=== PATIENT | male | born 1965 | race Caucasian/White ===

== ENCOUNTER 2021-12-25 23:51 | Emergency (ER) | payer OTHER, MEDICAID, SELFPAY ==
[2021-12-26 00:02] VITALS: BP 139/69; PULSE 94; RESP 20; TEMP 36.6; O2SAT 99
[2021-12-26 00:30] VITALS: BP 140/67; PULSE 85; RESP 18; O2SAT 98
--- NOTE | 2021-12-26 00:54 | ED_ITS ---
HPI - Back Pain/Injury General Chief Complaint: Back Pain/Injury Stated Complaint: Back Pain Time Seen by Provider: 12/26/21 00:08 Source: patient and EMS Mode of arrival: EMS History of Present Illness HPI Narrative: Patient is a 56-year-old male who is here for evaluation of back pain. He has a long standing history of lower back discomfort. Has seen a surgeon in the past and there was some discussion about doing surgery for his back pain but because of other issues he has not had this performed up to this point. He does not have a primary doctor. He states that oxycodone is worked for him in the past. He states that he recently got off of a bus here in the local area. He thinks it was the extensive walking that he did yesterday and the bus ride that causes pain to hurt. He states that his legs are weak. After he got off the bus he was able to walk for a short period of time but then stated that he had to crawl. He states someone saw him crawling. They came over to see how he was doing and offered him a beer. He states that he did drink a beer with this individual. He was outside of a marijuana dispensary where he was going to get CBD oil for his ?body pain. EMS was called because of his back pain. Related Data Allergies Allergy/AdvReac Type Severity Reaction Status Date / Time aspirin [ASPIRIN] Allergy Severe swelling Verified 12/26/21 01:06 bupropion [BUPROPION] Allergy Severe seizures Verified 12/26/21 01:06 haloperidol [From HALDOL] Allergy Severe bad Verified 12/26/21 01:06 reaction NSAIDS (Non-Steroidal Allergy Severe kidney Verified 12/26/21 01:06 Anti-Inflamma [NSAIDS (NON-STEROIDAL ANTI-INFLAMMA] Penicillins [PENICILLINS] Allergy Severe swelling Verified 12/26/21 01:06 acetaminophen [ACETAMINOPHEN] Allergy Mild stomach Verified 12/26/21 01:06 issues hydrocodone [From VICODIN] Allergy Mild sick Verified 12/26/21 01:06 ibuprofen [IBUPROFEN] Allergy Mild kidney Verified 12/26/21 01:06 tramadol [TRAMADOL] Allergy Mild itchy Verified 12/26/21 01:06 Review of Systems Review of Systems ROS Unobtainable: All systems reviewed & are unremarkable except as noted in HPI and below Patient History Medical History Bipolar disorder in partial remission (01/31/16) Chronic pain syndrome (01/31/16) Encounter for medication management (01/31/16) History of alcohol abuse (01/31/16) History of psychological stress (01/31/16) Osteoarthritis of multiple joints (01/31/16) Recurrent subluxation of right shoulder (01/31/16) Status post right shoulder hemiarthroplasty (01/31/16) Subluxation of right shoulder joint, sequela (01/31/16) Social History lives independently: Yes Substance Use Type: marijuana Exam Initial Vital Signs Initial Vital Signs: Vital Signs Temperature 98 F 12/26/21 00:02 Pulse Rate 94 H 12/26/21 00:02 Respiratory Rate 20 12/26/21 00:02 Blood Pressure 139/69 12/26/21 00:02 Pulse Oximetry 99 12/26/21 00:02 Const General: cooperative HENMT Head: normal to inspection and normocephalic Resp Effort & Inspection: normal respiratory effort Auscultation: clear to auscultation bilaterally GI Inspection: normal to inspection Skin General: no rashes or lesions noted Neuro General: patient alert, patient awake and moves all extremities Extrem General: normal to inspection and No edema Course Orders Ordered: Discontinued Medications Hydromorphone HCl (Hydromorphone 1 Mg Inj) 1 mg IM NOW ONE Stop: 12/26/21 00:55 Last Admin: 12/26/21 01:29 Dose: 1 mg Documented by: AKASH Vital Signs Vital signs: Vital Signs - 8 hr 12/26/21 00:02 12/26/21 00:30 12/26/21 02:13 Temperature 98 F Pulse Rate 94 H 85 78 Respiratory Rate 20 18 18 Blood Pressure 139/69 140/67 140/79 Pulse Oximetry 99 98 97 MDM - Back Pain/Injury MDM Narrative Medical decision making narrative: Patient is chronic back pain. I have low suspicion for cauda equina. Low suspicion for fracture. No indication for radiologic studies. Informed patient that chronic pain medication will need to come from 1 provider. He states he does not have a primary doctor in the area because he is trying to move to or again. Informed him that maybe this is not the best time for him to move and switch providers if he is needing chronic medication. I stated that we often put individuals on steroids to help with the inflammation. I agree that him walking yesterday in the bus ride probably aggravated his symptoms. He declined the steroids. He has multiple stated allergies that prevents him from using things like anti-inflammatories. He was given 1 dose of IM pain medication here in the ER. Will discharge home. He was given information where he could establish a primary doctor here in the local area. Discharge Plan Departure Patient Disposition: Home Clinical Impression: Chronic back pain, Subluxation of right shoulder joint, sequela Instructions: DI for Low Back Pain Activity Restrictions/Additional Instructions: I do recommend that you contact the spine surgeon that you have talked within the past to discuss proceeding with surgery for your back pain. Any pain medication needs to come from your primary provider. You can contact the call center here at [facility] at [phone] to help you establish a primary doctor if needed. Return emergency department for any new symptoms. Referrals: Arlette Man MD [Primary Care Provider] -
[2021-12-26] MEDS: HYDROMORPHONE 1 MG INJ IM (01:29)
[2021-12-26 02:13] VITALS: BP 140/79; PULSE 78; RESP 18; O2SAT 97
== END 2021-12-26 02:16 | disposition home or self-care (01) ==
PROVIDERS: Emergency Provider Emergency Medicine; PCP Internal Medicine
DX: M54.50 Low back pain, unspecified (principal); G89.29 Other chronic pain; S43.001S Unspecified subluxation of right shoulder joint, sequela; Z79.891 Long term (current) use of opiate analgesic; X58.XXXS Exposure to other specified factors, sequela
CPT/HCPCS: 96372; 99283; J1170

== ENCOUNTER 2022-01-17 09:33 | Emergency (ER) | payer OTHER, MEDICAID, SELFPAY ==
[2022-01-17] VITALS (9 sets, daily range): BP systolic 114–140; BP diastolic 63–74; PULSE 76–86; RESP 16–30; TEMP 36.5; O2SAT 94–98; BMI 31.3
--- NOTE | 2022-01-17 10:55 | PC.NURSE ---
Has multiple issues with pain, dizziness, fractured hand, throwing up blood x 2 days
--- NOTE | 2022-01-17 12:39 | ED.GIBLEED ---
HPI - GI Bleed <Florentin Shi, DO - Last Filed: 01/18/22 10:44> General Chief complaint: GI Bleed Stated complaint: back/leg pain, throwing up blood Time Seen by Provider: 01/17/22 12:31 Source: patient Mode of arrival: Ambulatory History of Present Illness HPI Narrative: 56-year-old male former smoker with prior significant alcohol history presents with multiple symptoms over the past few days. He states that he does frequently fall but over the past 3 days is fallen multiple times and states that his left side seems to be giving out on him. He has fallen at least a few times from ground level and wants down 6 stairs. He has some mid to right-sided neck pain and left-sided abdominal pain. He has a history of back issues and states he has even had MRI at outside facility. He denies any loss of control of bowel or bladder. He denies any pain down his left leg. He has a very poor historian at baseline. He denies any obvious head injury. He has had no blurred or double vision. He denies any trouble with speech or his thought process. He denies any obvious new extremity weakness but does state that he feels that his left side has been giving out on him which would be contributing to his recent falls. He states that he has had significant nausea and vomiting and has developed some blood tinged emesis. He states he thinks he has had bloody emesis in the past but is unsure. He states he recently had a fall and had been seen and evaluated at [facility], he was found to have a 5th finger fracture and was splinted, he fell again in the aftermath while incarcerated and the cast was removed. Related Data Allergies Allergy/AdvReac Type Severity Reaction Status Date / Time aspirin [ASPIRIN] Allergy Severe swelling Verified 12/26/21 01:06 bupropion [BUPROPION] Allergy Severe seizures Verified 12/26/21 01:06 haloperidol [From HALDOL] Allergy Severe bad Verified 12/26/21 01:06 reaction NSAIDS (Non-Steroidal Allergy Severe kidney Verified 12/26/21 01:06 Anti-Inflamma [NSAIDS (NON-STEROIDAL ANTI-INFLAMMA] Penicillins [PENICILLINS] Allergy Severe swelling Verified 12/26/21 01:06 acetaminophen [ACETAMINOPHEN] Allergy Mild stomach Verified 12/26/21 01:06 issues hydrocodone [From VICODIN] Allergy Mild sick Verified 12/26/21 01:06 ibuprofen [IBUPROFEN] Allergy Mild kidney Verified 12/26/21 01:06 tramadol [TRAMADOL] Allergy Mild itchy Verified 12/26/21 01:06 fentanyl Allergy Verified 01/17/22 10:48 Review of Systems <Florentin Shi DO - Last Filed: 01/18/22 10:44> Review of Systems Narrative: GENERAL: See HPI HEENT: Denies sinus pain, ear pain, sore throat, difficulty swallowing, dizziness. RESPIRATORY: Denies dyspnea, cough, wheezing, hemoptysis, sputum. CARDIOVASCULAR: Denies chest pain, palpitations, orthopnea, edema, GASTROINTESTINAL: See HPI : Denies dysuria, frequency, incontinence, hematuria, urinary retention. MUSCULOSKELETAL: See HPI SKIN: Denies rash, skin lesions, or other NEUROLOGIC: See HPI PSYCHIATRIC: No concerning psychosocial issues. 12 point review of systems is negative except for those stated above Patient History <Florentin Shi DO - Last Filed: 01/18/22 10:44> Medical History Bipolar disorder in partial remission (01/31/16) Chronic pain syndrome (01/31/16) Encounter for medication management (01/31/16) History of alcohol abuse (01/31/16) History of psychological stress (01/31/16) Osteoarthritis of multiple joints (01/31/16) Recurrent subluxation of right shoulder (01/31/16) Status post right shoulder hemiarthroplasty (01/31/16) Subluxation of right shoulder joint, sequela (01/31/16) Social History lives independently: Yes Smoking Status: Former smoker Smoking Status: Former smoker Substance Use Type: marijuana Exam <Florentin Shi DO - Last Filed: 01/18/22 10:44> Narrative Exam Narrative: GENERAL: [56] year old patient appears stated age. Well-developed patient, in mild distress. GCS 15 HEAD: Atraumatic. Normocephalic. EYES: Pupils equal round and reactive. Extraocular motions intact. No scleral icterus. No injection or drainage. ENT: Nose without bleeding, purulent drainage. Throat without erythema, tonsillar hypertrophy or exudate. Airway patent. NECK: Trachea midline. Tender in the right upper lateral side of neck, no midline tenderness, step-offs or crepitance CARDIOVASCULAR: Regular rate and rhythm without murmurs, gallops, or rubs. RESPIRATORY: Clear to auscultation. Breath sounds equal bilaterally. No wheezes, rales, or rhonchi. GASTROINTESTINAL: Abdomen soft, non-tender, nondistended. EXTREMITIES: No edema or joint tenderness. BACK: Nontender without deformity or crepitance. No flank tenderness. No saddle anesthesia. Left lower extremity with 3/5 muscle strength, right lower extremity 4/5 muscle strength. Left patellar reflex 1+, right patellar reflex 2+ NEURO: AOx3. SKIN: No rash or erythema of visible areas Initial Vital Signs Initial Vital Signs: Vital Signs Temperature 97.7 F 01/17/22 10:48 Pulse Rate 86 01/17/22 10:48 Respiratory Rate 18 01/17/22 10:48 Blood Pressure 132/74 01/17/22 10:48 Pulse Oximetry 97 01/17/22 10:48 <Justin Lemus DO - Last Filed: 01/18/22 01:25> Initial Vital Signs Initial Vital Signs: Vital Signs Temperature 97.7 F 01/17/22 10:48 Pulse Rate 86 01/17/22 10:48 Respiratory Rate 18 01/17/22 10:48 Blood Pressure 132/74 01/17/22 10:48 Pulse Oximetry 97 01/17/22 10:48 Course <Florentin Shi DO - Last Filed: 01/18/22 10:44> Orders Ordered: Discontinued Medications Oxycodone HCl (Oxycodone 5 Mg/5 Ml Oral Solution) 10 mg PO Q4HR PRN PRN Reason: Pain, Moderate (4-6) Oxycodone HCl (Oxycodone Ir 5 Mg Tablet) 10 mg PO NOW ONE Stop: 01/17/22 15:09 Last Admin: 01/17/22 15:15 Dose: 10 mg Documented by: PRIETO Oxycodone HCl (Oxycodone Ir 5 Mg Tablet) 5 mg PO NOW ONE Stop: 01/17/22 20:58 Last Admin: 01/17/22 21:01 Dose: 5 mg Documented by: DBROYLE Oxycodone/Acetaminophen (Oxycodone/Acetaminophen 5/325 Tablet) 2 tab PO NOW ONE Stop: 01/17/22 15:01 Last Admin: 01/17/22 15:10 Dose: Not Given Documented by: PRIETO Vital Signs Vital signs: Vital Signs - 8 hr 01/17/22 19:30 01/17/22 21:10 Pulse Rate 83 Respiratory Rate 16 18 Blood Pressure 124/74 134/68 Pulse Oximetry 97 95 <Justin Lemus DO - Last Filed: 01/18/22 01:25> Orders Ordered: Discontinued Medications Oxycodone HCl (Oxycodone 5 Mg/5 Ml Oral Solution) 10 mg PO Q4HR PRN PRN Reason: Pain, Moderate (4-6) Oxycodone HCl (Oxycodone Ir 5 Mg Tablet) 10 mg PO NOW ONE Stop: 01/17/22 15:09 Last Admin: 01/17/22 15:15 Dose: 10 mg Documented by: PRIETO Oxycodone HCl (Oxycodone Ir 5 Mg Tablet) 5 mg PO NOW ONE Stop: 01/17/22 20:58 Last Admin: 01/17/22 21:01 Dose: 5 mg Documented by: ANABELL Oxycodone/Acetaminophen (Oxycodone/Acetaminophen 5/325 Tablet) 2 tab PO NOW ONE Stop: 01/17/22 15:01 Last Admin: 01/17/22 15:10 Dose: Not Given Documented by: PRIETO Vital Signs Vital signs: Vital Signs - 8 hr 01/17/22 19:30 01/17/22 21:10 Pulse Rate 83 Respiratory Rate 16 18 Blood Pressure 124/74 134/68 Pulse Oximetry 97 95 MDM - GI Bleed <Florentin Shi DO - Last Filed: 01/18/22 10:44> Lab Data Result diagrams: 01/17/22 13:05 01/17/22 13:05 Labs: Lab Results 01/17/22 01/17/22 01/17/22 Range/Units 13:05 13:05 13:05 WBC 5.6 (4.5-11.0) X10^3/uL RBC 4.31 L (4.5-5.9) X10^6/uL Hgb 11.4 L (13.5-17.5) g/dL Hct 34.6 L (41-53) % MCV 80.3 (80-100) fL MCH 26.4 (26-34) PG MCHC 32.9 (30-36) % RDW 17.7 H (11.6-14.8) % Plt Count 195 (150-400) X10^3/uL Neut % (Auto) 59.4 (50-75) % Lymph % (Auto) 21.2 L (25-40) % Stark % (Auto) 11.7 (3-14) % Eos % (Auto) 7.5 H (2-4) % Baso % (Auto) 0.2 (0-2) % Neut # (Auto) 3300 (5848-7879) /uL Lymph # (Auto) 1200 (5962-7675) /uL Stark # (Auto) 700 (0-900) /uL Eos # (Auto) 400 (0-450) /uL Baso # (Auto) 0 (0-100) /uL PT 12.6 (10.1-12.7) SECONDS INR 1.1 (0.9-1.3) Sodium 138 (137-145) mmol/L Potassium 4.1 (3.4-5.1) mmol/L Chloride 99 (98-107) mmol/L Carbon Dioxide 27 (22-32) mmol/L BUN 10 (9-20) mg/dL Creatinine 0.77 (0.66-1.25) mg/dL Estimated GFR > 60 (>60) mL/min BUN/Creatinine Ratio 13.0 (6-22) Glucose 110 H (70-100) mg/dL Calcium 8.7 (8.4-10.2) mg/dL Magnesium 2.1 (1.6-2.3) mg/dL Total Bilirubin 0.8 (0.2-1.3) mg/dL AST 66 H (17-59) IU/L ALT 68 H (<50) IU/L Alkaline Phosphatase 99 (38-126) U/L Total Creatine Kinase 294 H (55-170) U/L CK-MB (CK-2) 7.77 H (<2.37) ng/mL CK-MB (CK-2) Rel Index 2.6 (1.5-5.0) % Troponin I < 0.012 (0.01-0.034) ng/mL NT-Pro-B Natriuret Pep 28 (<125) pg/mL Total Protein 8.2 (6.3-8.2) g/dL Albumin 4.4 (3.5-5.0) g/dL Globulin 3.8 (1.7-4.1) g/dL Albumin/Globulin Ratio 1.2 (1.0-2.8) Lipase 470 H (23-300) U/L Urine Dip Bedside Urine Glucose Negative Bedside Urine Bilirubin - Negative Bedside Urine Ketone - Negative Urine Specific [place] 1.030 Bedside Urine Occult Blood - Negative Bedside Urine pH 6.0 Bedside Urine Protein - Negative Bedside Urine Urobilinogen - Negative Bedside Urine Nitrite - Negative Bedside Urine Leukocytes - Negative Esterase Imaging Data CT scan - head: Radiologist's Impression: NAP CT - cervical spine: Radiologist's Impression: [address] [address] [address] Scan Report Signed Patient: Anthony Sloan MR#: [id number] : 1965 Acct:[id number] Age/Sex: 56 / M Date of Service: 01/17/22 Loc: ED Accession Number: [id number] ?? Procedure: CT cervical spine wo con Ordering Provider: Florentin Shi D.O. PROCEDURE:? CT CERVICAL SPINE WO CON ? INDICATIONS:? multiple falls, neck pain ? TECHNIQUE:? Noncontrast 3 mm thick sections acquired from the skull base to the T4 level.? Sagittal and coronal reformats were then constructed.? For radiation dose reduction, the following was used:? automated exposure control, adjustment of mA and/or kV according to patient size.? ? COMPARISON:? None. ? FINDINGS:? Image quality:? Excellent.? ? Bones:? No fractures or dislocations.? Visualized superior ribs are intact.? ? Soft tissues:? Prevertebral soft tissues are normal in thickness.? No paravertebral hematomas.? No apical pneumothoraces.? ? ? IMPRESSION:? No CT evidence of acute traumatic cervical spine injury. ? Dictated by: Landon Rodriguez M.D. on 01/17/2022 at 14:25 ? ? Approved by: Landon Rodriguez M.D. on 01/17/2022 at 14:35 ? CT scan - chest: Radiologist's Impression: [address] [address] [address] Scan Report Addendum Patient: Anthony Sloan MR#: [id number] : 1965 Acct:[id number] Age/Sex: 56 / M Date of Service: 01/17/22 Loc: ED Accession Number: [id number] ?? Procedure: CT chest abd pel w con Ordering Provider: Florentin Shi D.O. ADDENDUMThis report includes an Addendum and supersedes previous reports for this exam. ? ? ? PROCEDURE:? CT CHEST ABD PEL W CON ? INDICATIONS:? traumatic injury, fall with left abdominal pain ? TECHNIQUE:? After the administration of intravenous contrast, 5 mm thick sections acquired from the lung apices to the symphysis.? 2.5 mm thick coronal and sagittal reformats were acquired. ?Additional 7 mm thick coronal maximum intensity projection (MIP) reformats acquired through the lungs.? Optional 10-minute delayed imaging may be performed from the kidneys to the bladder.? For radiation dose reduction, the following was used:? automated exposure control, adjustment of mA and/or kV according to patient size.? ? COMPARISON:? None. ? FINDINGS:? Image quality:? Excellent.? ? CHEST:? Lungs:? No pulmonary contusions or lacerations.? No acute airspace opacities.? No pneumothorax or hemothorax.? Central and peripheral airways appear patent and normal in caliber.? ? Mediastinum:? No mediastinal hematomas.? Heart size is normal.? No pericardial effusion.? Thoracic aorta and pulmonary arteries demonstrate normal size and enhancement.? No mediastinal or hilar adenopathy.? Esophagus is normal in caliber.? Mild hiatal hernia.? ? Chest wall:? No rib fractures.? No subcutaneous emphysema.? No axillary or supraclavicular adenopathy.? Thyroid gland is unremarkable.? ? ? ABDOMEN:? Solid organs:? Liver is enlarged with steatosis and normal enhancement, without lacerations.? Gallbladder is unremarkable.? Biliary system is non-dilated.? Pancreas enhances normally, without transection.? Spleen is normal in size and enhancement, without lacerations.? No adrenal hematomas.? Both kidneys enhance normally, without hydronephrosis or lacerations.? Nonobstructing punctate right renal calculus. ? Peritoneum and bowel:? No free fluid or air.? Unenhanced bowel loops demonstrate normal wall thickness and caliber.? ? Nodes and vessels:? No retroperitoneal or mesenteric adenopathy.? Aorta and inferior vena cava are normal in size and enhancement.? ? Miscellaneous:? No ventral hernias.? ? ? PELVIS:? Genitourinary:? Bladder wall thickness is normal.? ? Miscellaneous:? Fat containing inguinal hernias are present. ? Bones:? Pelvic ring and hip joints appear intact.? No vertebral compression fractures.? Mild deformity of the right iliac wing suggestive of old trauma or iatrogenic intervention. ? ? IMPRESSION:? ? No acute traumatic osseous or visceral injury. ? Hepatic steatosis. ? Dictated by: Светлана Galindo M.D. on 01/17/2022 at 13:37 ? ? Approved by: Светлана Galindo M.D. on 01/17/2022 at 13:42 ? ? ? ADDENDUM: ? ? Report corrected and underlined above.? ? Contents of this addendum discussed between Dr. Galindo and Dr. Shi.? ? Dictated by: Leoncio Orozco M.D. on 01/17/2022 at 15:24 ? ? Approved by: Leoncio Orozco M.D. on 01/17/2022 at 15:25 ? Addendum Dictated By: Leoncio Orozco MD Addendum Signed By: Addendum Cosigned By: DD/ /05/1629 TD/TT: 01/17/2203/05/1629 PROCEDURE:? CT CHEST ABD PEL W CON ? INDICATIONS:? traumatic injury, fall with left abdominal pain ? TECHNIQUE:? After the administration of intravenous contrast, 5 mm thick sections acquired from the lung apices to the symphysis.? 2.5 mm thick coronal and sagittal reformats were acquired. ?Additional 7 mm thick coronal maximum intensity projection (MIP) reformats acquired through the lungs.? Optional 10-minute delayed imaging may be performed from the kidneys to the bladder.? For radiation dose reduction, the following was used:? automated exposure control, adjustment of mA and/or kV according to patient size.? ? COMPARISON:? None. ? FINDINGS:? Image quality:? Excellent.? ? CHEST:? Lungs:? No pulmonary contusions or lacerations.? No acute airspace opacities.? No pneumothorax or hemothorax.? Central and peripheral airways appear patent and normal in caliber.? ? Mediastinum:? No mediastinal hematomas.? Heart size is normal.? No pericardial effusion.? Thoracic aorta and pulmonary arteries demonstrate normal size and enhancement.? No mediastinal or hilar adenopathy.? Esophagus is normal in caliber.? Mild hiatal hernia.? ? Chest wall:? No rib fractures.? No subcutaneous emphysema.? No axillary or supraclavicular adenopathy.? Thyroid gland is unremarkable.? ? ? ABDOMEN:? Solid organs:? Liver is enlarged with steatosis and normal enhancement, without lacerations.? Gallbladder is unremarkable.? Biliary system is non-dilated.? Pancreas enhances normally, without transection.? Spleen is normal in size and enhancement, without lacerations.? No adrenal hematomas.? Both kidneys enhance normally, without hydronephrosis or lacerations.? Nonobstructing punctate right renal calculus. ? Peritoneum and bowel:? No free fluid or air.? Unenhanced bowel loops demonstrate normal wall thickness and caliber.? ? Nodes and vessels:? No retroperitoneal or mesenteric adenopathy.? Aorta and inferior vena cava are normal in size and enhancement.? ? Miscellaneous:? No ventral hernias.? ? ? PELVIS:? Genitourinary:? Bladder wall thickness is normal.? ? Miscellaneous:? Fat containing inguinal hernias are present. ? Bones:? Pelvic ring and hip joints appear intact.? No vertebral compression fractures.? Mild deformity of the right iliac wing suggestive of old trauma or iatrogenic intervention. ? ? IMPRESSION:? ? Lysed acute traumatic osseous or visceral injury. ? Hepatic steatosis. ? Dictated by: Светлана Galindo M.D. on 01/17/2022 at 13:37 ? ? Approved by: Светлана Galindo M.D. on 01/17/2022 at 13:42 ? MDM Narrative Medical decision making narrative: Patient with widespread symptoms and all over pain in the aftermath of multiple recent falls. Physical exam largely reassuring with labs that are unremarkable. Head, C-spine, chest abdomen and pelvis are unremarkable. Patient reports left leg weakness for some time but perhaps worse than normal. MRI pending. Patient signed out to Dr. Lemus for final disposition <Justin Lemus, DO - Last Filed: 01/18/22 01:25> Lab Data Labs: Lab Results 01/17/22 01/17/22 01/17/22 Range/Units 13:05 13:05 13:05 WBC 5.6 (4.5-11.0) X10^3/uL RBC 4.31 L (4.5-5.9) X10^6/uL Hgb 11.4 L (13.5-17.5) g/dL Hct 34.6 L (41-53) % MCV 80.3 (80-100) fL MCH 26.4 (26-34) PG MCHC 32.9 (30-36) % RDW 17.7 H (11.6-14.8) % Plt Count 195 (150-400) X10^3/uL Neut % (Auto) 59.4 (50-75) % Lymph % (Auto) 21.2 L (25-40) % Stark % (Auto) 11.7 (3-14) % Eos % (Auto) 7.5 H (2-4) % Baso % (Auto) 0.2 (0-2) % Neut # (Auto) 3300 (0715-9119) /uL Lymph # (Auto) 1200 (0272-6416) /uL Stark # (Auto) 700 (0-900) /uL Eos # (Auto) 400 (0-450) /uL Baso # (Auto) 0 (0-100) /uL PT 12.6 (10.1-12.7) SECONDS INR 1.1 (0.9-1.3) Sodium 138 (137-145) mmol/L Potassium 4.1 (3.4-5.1) mmol/L Chloride 99 (98-107) mmol/L Carbon Dioxide 27 (22-32) mmol/L BUN 10 (9-20) mg/dL Creatinine 0.77 (0.66-1.25) mg/dL Estimated GFR > 60 (>60) mL/min BUN/Creatinine Ratio 13.0 (6-22) Glucose 110 H (70-100) mg/dL Calcium 8.7 (8.4-10.2) mg/dL Magnesium 2.1 (1.6-2.3) mg/dL Total Bilirubin 0.8 (0.2-1.3) mg/dL AST 66 H (17-59) IU/L ALT 68 H (<50) IU/L Alkaline Phosphatase 99 (38-126) U/L Total Creatine Kinase 294 H (55-170) U/L CK-MB (CK-2) 7.77 H (<2.37) ng/mL CK-MB (CK-2) Rel Index 2.6 (1.5-5.0) % Troponin I < 0.012 (0.01-0.034) ng/mL NT-Pro-B Natriuret Pep 28 (<125) pg/mL Total Protein 8.2 (6.3-8.2) g/dL Albumin 4.4 (3.5-5.0) g/dL Globulin 3.8 (1.7-4.1) g/dL Albumin/Globulin Ratio 1.2 (1.0-2.8) Lipase 470 H (23-300) U/L Urine Dip Bedside Urine Glucose Negative Bedside Urine Bilirubin - Negative Bedside Urine Ketone - Negative Urine Specific [place] 1.030 Bedside Urine Occult Blood - Negative Bedside Urine pH 6.0 Bedside Urine Protein - Negative Bedside Urine Urobilinogen - Negative Bedside Urine Nitrite - Negative Bedside Urine Leukocytes - Negative Esterase Imaging Data lumbar spine MRI: Radiologist's Impression: [place] [id number] Magnetic Resonance Report Signed Patient: Anthony Sloan MR#: [id number] : 1965 Acct:[id number] Age/Sex: 56 / M Date of Service: 01/17/22 Loc: ED Accession Number: [id number] ?? Procedure: MR lumbar spine wo con Ordering Provider: Florentin Shi D.O. PROCEDURE:? MR LUMBAR SPINE WO CON ? INDICATIONS:? severe lumbar pain with left leg weakness ? TECHNIQUE:? Noncontrast sagittal T1 spin echo and T2 fast echo, sagittal STIR, and T2 fast spin echo through the lumbar spine.? In cases with scoliosis, additional coronal T2 fast spin echo may be performed.? ? COMPARISON:? None. ? FINDINGS:? Image quality:? Excellent.? ? Alignment and Curvature:? There is normal bony alignment.? ? Bone Marrow:? Modic type 2 reactive endplate changes noted adjacent the L4-L5 and L5-S1 discs.? Chronic T12 and L2 compression deformities.? No acute vertebral body compression fractures.? ? Spinal Cord:? Conus medullaris terminates at the L1 level.? Visualized cord demonstrates normal signal and size.? ? Paraspinous Soft Tissues:? No paravertebral masses.? ? T12-L1:? Normal appearance.? ? L1-L2:? Loss of disc signal height.? Mild to moderate diffuse disc bulge.? Mild narrowing of the central canal.? No neural foraminal narrowing.? No neural compression. ? L2-L3:? Slight loss of disc signal.? Minimal, diffuse disc bulge.? Mild bilateral facet hypertrophy.? Mild narrowing of the central canal.? Mild bilateral neural foraminal narrowing.? No neural compression. ? L3-L4:? Loss of disc signal.? Mild, diffuse disc bulge.? Mild bilateral facet hypertrophy.? Mild ligamentum flavum hypertrophy.? Moderate narrowing of the central canal.? Mild bilateral neural foraminal narrowing.? No neural compression. ? L4-L5:? Loss of disc signal height.? Mild, diffuse disc bulge.? Mild bilateral facet hypertrophy.? Mild ligamentum flavum hypertrophy.? Moderate narrowing of the central canal.? Moderate right and mild left neural foraminal narrowing.? No neural compression. ? L5-S1:? Loss of disc signal height.? Mild, diffuse disc bulge.? Mild right and [id number] left facet hypertrophy.? Mild narrowing of the central canal.? Moderate right and moderate to severe left subarticular neural foraminal narrowing with slight compression of the exiting left L5 nerve root. ? ? IMPRESSION:? ? 1. Multilevel degenerative disc disease. ? 2. Multilevel facet arthropathy. ? 3. No severe central canal narrowing. ? 4. Moderate to severe left L5-S1 subarticular neural foraminal narrowing with slight compression of the exiting left L5 nerve root.? Please correlate with clinical data. ? 5. Chronic T12 and L2 compression fractures.? No acute compression fracture. ? ? Dictated by: Nida Coreas MD, PhD on 01/17/2022 at 20:18 ? ? Approved by: Nida Coreas MD, PhD on 01/17/2022 at 20:25?? MDM Narrative Medical decision making narrative: Patient with widespread symptoms and all over pain in the aftermath of multiple recent falls. Physical exam largely reassuring with labs that are unremarkable. Head, C-spine, chest abdomen and pelvis are unremarkable. Patient reports left leg weakness for some time but perhaps worse than normal. MRI pending. Patient signed out to Dr. Lemus for final disposition Dr lemus: Received turned over. Reviewed patient's history and physical labs and radiologic studies performed up to this point. Patient had the MRI without difficulty. The results were reviewed by myself. Was able to obtain a copy of the report from [facility] lumbar spine that he had on October 15, 2020. The findings of the MRI today are similar to the MRI at that time. There is obviously some worsening of the degenerative disc disease and other findings but there does not appear to be any acute surgical issue. I had a discussion with the patient regarding this. He stated that he knows that he has spine issues. He has been under the care of a spinal surgeon in the past and there has been discussion about surgery in the past. He states that secondary to ?issues ?the surgery was never completed. He has not followed up since that time. Informed him that there was not an acute surgical issue today. We discussed options to include oral steroids to try to help with the inflammation however the patient has declined this. He also has multiple stated allergies to nonsteroidal anti-inflammatories and Tylenol and Vicodin and tramadol and other pain medication. Informed him that he was going to need to follow-up with the spine surgeon again and also his primary doctor. He asked that I find him a primary doctor however I told him that I was going to be unable to do that at 2100 hours at night on a Thursday. He did mention that he has social work involved. I told him that I would be happy to give him a phone number that he could call on Thursday morning to help him establish a primary doctor. He has to be admitted to the hospital however I informed him that there was not a clear indication to admit him to the hospital currently. He has to feed his stay in the hospital overnight until he can get to a place where he is ?around people ?I once again told him that there was no indication to admit him to the hospital. Patient then asked for more pain medication. He has for pain medication to be discharged with however a informed him that I would not be providing any opioid pain medication and he would need to get this from a primary provider or spinal surgeon. He was given return precautions. Discharge Plan Departure Patient Disposition: Home Clinical Impression: Degenerative disc disease Instructions: Degenerative Disc Disease Activity Restrictions/Additional Instructions: You can contact the call center here at the [facility] at [phone] to help you establish a primary doctor. You can also contact the spine surgeon that you have seen in the past to follow-up. Take all of your medications as directed.
--- NOTE | 2022-01-17 12:49 | DI.RAD.S_ITS ---
PROCEDURE: XR HAND LT MIN 3V INDICATIONS: recent fracture, fell and broke cast TECHNIQUE: 3 views of the hand(s) acquired. COMPARISON: [facility], CR, XR HAND 3+ VIEWS LEFT, 08/07/2020, 22:37. FINDINGS: Bones: Metacarpal head fracture is present, appearing old and was present on 08/07/2028 exam. There is a nondisplaced lucency in the proximal aspect of the 5th proximal phalanx. Soft tissues: No suspicious soft tissue calcifications. IMPRESSION: Nondisplaced lucency suspicious for fracture at the base of the 5th proximal phalanx. Old 5th metacarpal head fracture. Dictated by: Светлана Galindo M.D. on 01/17/2022 at 13:13 Approved by: Светлана Galindo M.D. on 01/17/2022 at 13:16
--- NOTE | 2022-01-17 12:50 | DI.CT.S_ITS ---
PROCEDURE: CT HEAD/BRAIN WO CON INDICATIONS: FELL TECHNIQUE: Noncontrast 4.5 mm thick angled axial sections acquired from the foramen magnum to the vertex, with coronal and sagittal reformats. For radiation dose reduction, the following was used: automated exposure control, adjustment of mA and/or kV according to patient size. COMPARISON: None. FINDINGS: Image quality: Excellent. CSF spaces: Basal cisterns are patent. No extra-axial fluid collections. Ventricles are normal in size and shape. Brain: No midline shift. No intracranial masses or hemorrhage. Stiles-white matter interface is normal. Skull and face: Calvarium and visualized facial bones are intact, without suspicious lesions. Sinuses: Visualized sinuses and mastoids are clear. IMPRESSION: No acute intracranial finding. Dictated by: Landon Rodriguez M.D. on 01/17/2022 at 14:48 Approved by: Landon Rodriguez M.D. on 01/17/2022 at 14:48
--- NOTE | 2022-01-17 12:51 | DI.CT.S_ITS ---
PROCEDURE: CT CHEST ABD PEL W CON INDICATIONS: traumatic injury, fall with left abdominal pain TECHNIQUE: After the administration of intravenous contrast, 5 mm thick sections acquired from the lung apices to the symphysis. 2.5 mm thick coronal and sagittal reformats were acquired. Additional 7 mm thick coronal maximum intensity projection (MIP) reformats acquired through the lungs. Optional 10-minute delayed imaging may be performed from the kidneys to the bladder. For radiation dose reduction, the following was used: automated exposure control, adjustment of mA and/or kV according to patient size. COMPARISON: None. FINDINGS: Image quality: Excellent. CHEST: Lungs: No pulmonary contusions or lacerations. No acute airspace opacities. No pneumothorax or hemothorax. Central and peripheral airways appear patent and normal in caliber. Mediastinum: No mediastinal hematomas. Heart size is normal. No pericardial effusion. Thoracic aorta and pulmonary arteries demonstrate normal size and enhancement. No mediastinal or hilar adenopathy. Esophagus is normal in caliber. Mild hiatal hernia. Chest wall: No rib fractures. No subcutaneous emphysema. No axillary or supraclavicular adenopathy. Thyroid gland is unremarkable. ABDOMEN: Solid organs: Liver is enlarged with steatosis and normal enhancement, without lacerations. Gallbladder is unremarkable. Biliary system is non-dilated. Pancreas enhances normally, without transection. Spleen is normal in size and enhancement, without lacerations. No adrenal hematomas. Both kidneys enhance normally, without hydronephrosis or lacerations. Nonobstructing punctate right renal calculus. Peritoneum and bowel: No free fluid or air. Unenhanced bowel loops demonstrate normal wall thickness and caliber. Nodes and vessels: No retroperitoneal or mesenteric adenopathy. Aorta and inferior vena cava are normal in size and enhancement. Miscellaneous: No ventral hernias. PELVIS: Genitourinary: Bladder wall thickness is normal. Miscellaneous: Fat containing inguinal hernias are present. Bones: Pelvic ring and hip joints appear intact. No vertebral compression fractures. Mild deformity of the right iliac wing suggestive of old trauma or iatrogenic intervention. IMPRESSION: Lysed acute traumatic osseous or visceral injury. Hepatic steatosis. Dictated by: Светлана Galindo M.D. on 01/17/2022 at 13:37 Approved by: Светлана Galindo M.D. on 01/17/2022 at 13:42
[2022-01-17 13:33] LABS: Add Manual Diff / Slide Review NO; Basophils Absolute Auto 0 /uL (0-100); Basophils Percent Auto 0.2 % (0-2); Eosinophils Absolute Auto 400 /uL (0-450); Eosinophils Percent Auto 7.5 % (2-4); Hematocrit 34.6 % (41-53); Hemoglobin 11.4 g/dL (13.5-17.5); Lymphocytes Absolute Auto 1200 /uL (1100-4500); Lymphocytes Percent Auto 21.2 % (25-40); Mean Corpuscular HGB Conc 32.9 % (30-36); Mean Corpuscular Hemoglobin 26.4 PG (26-34); Mean Corpuscular Volume 80.3 fL (80-100); Monocytes Absolute Auto 700 /uL (0-900); Monocytes Percent Auto 11.7 % (3-14); Neutrophils Absolute Auto 3300 /uL (1500-7000); Neutrophils Percent Auto 59.4 % (50-75); Platelet Count 195 X10^3/uL (150-400); Red Blood Cell Count 4.31 X10^6/uL (4.5-5.9); Red Cell Distribution Width 17.7 % (11.6-14.8); White Blood Cell Count 5.6 X10^3/uL (4.5-11.0)
[2022-01-17 13:41] LABS: INR 1.1 (0.9-1.3); Prothrombin Time 12.6 SECONDS (10.1-12.7)
[2022-01-17 13:45] LABS: Alanine Aminotransferase 68 IU/L (<50); Albumin 4.4 g/dL (3.5-5.0); Albumin Globulin Ratio 1.2 (1.0-2.8); Alkaline Phosphatase 99 U/L (38-126); Aspartate Aminotransferase 66 IU/L (17-59); Bilirubin Total 0.8 mg/dL (0.2-1.3); Blood Urea Nitrogen 10 mg/dL (9-20); Calcium 8.7 mg/dL (8.4-10.2); Carbon Dioxide 27 mmol/L (22-32); Chloride 99 mmol/L (98-107); Creatine Kinase 294 U/L (55-170); Estimated Glomerular Filt Rate > 60 mL/min (>60); Globulin 3.8 g/dL (1.7-4.1); Glucose 110 mg/dL (70-100); HEMOLYSIS < 15 (0-50); Lipase 470 U/L (23-300); Magnesium 2.1 mg/dL (1.6-2.3); Potassium 4.1 mmol/L (3.4-5.1); Sodium 138 mmol/L (137-145); Total Protein 8.2 g/dL (6.3-8.2)
--- NOTE | 2022-01-17 13:50 | DI.CT.S_ITS ---
PROCEDURE: CT CERVICAL SPINE WO CON INDICATIONS: multiple falls, neck pain TECHNIQUE: Noncontrast 3 mm thick sections acquired from the skull base to the T4 level. Sagittal and coronal reformats were then constructed. For radiation dose reduction, the following was used: automated exposure control, adjustment of mA and/or kV according to patient size. COMPARISON: None. FINDINGS: Image quality: Excellent. Bones: No fractures or dislocations. Visualized superior ribs are intact. Soft tissues: Prevertebral soft tissues are normal in thickness. No paravertebral hematomas. No apical pneumothoraces. IMPRESSION: No CT evidence of acute traumatic cervical spine injury. Dictated by: Landon Rodriguez M.D. on 01/17/2022 at 14:25 Approved by: Landon Rodriguez M.D. on 01/17/2022 at 14:35
[2022-01-17 13:56] LABS: NT-proBNP (BNP-Adult 18+) 28 pg/mL (<125); Troponin I < 0.012 ng/mL (0.01-0.034)
[2022-01-17 14:00] LABS: CKMB % Relative Index 2.6 % (1.5-5.0); Creatine Kinase MB 7.77 ng/mL (<2.37)
[2022-01-17] MEDS: OXYCODONE IR 5 MG TABLET 10 MG PO (15:15)
--- NOTE | 2022-01-17 17:55 | DI.MRI.S_ITS ---
PROCEDURE: MR LUMBAR SPINE WO CON INDICATIONS: severe lumbar pain with left leg weakness TECHNIQUE: Noncontrast sagittal T1 spin echo and T2 fast echo, sagittal STIR, and T2 fast spin echo through the lumbar spine. In cases with scoliosis, additional coronal T2 fast spin echo may be performed. COMPARISON: None. FINDINGS: Image quality: Excellent. Alignment and Curvature: There is normal bony alignment. Bone Marrow: Modic type 2 reactive endplate changes noted adjacent the L4-L5 and L5-S1 discs. Chronic T12 and L2 compression deformities. No acute vertebral body compression fractures. Spinal Cord: Conus medullaris terminates at the L1 level. Visualized cord demonstrates normal signal and size. Paraspinous Soft Tissues: No paravertebral masses. T12-L1: Normal appearance. L1-L2: Loss of disc signal height. Mild to moderate diffuse disc bulge. Mild narrowing of the central canal. No neural foraminal narrowing. No neural compression. L2-L3: Slight loss of disc signal. Minimal, diffuse disc bulge. Mild bilateral facet hypertrophy. Mild narrowing of the central canal. Mild bilateral neural foraminal narrowing. No neural compression. L3-L4: Loss of disc signal. Mild, diffuse disc bulge. Mild bilateral facet hypertrophy. Mild ligamentum flavum hypertrophy. Moderate narrowing of the central canal. Mild bilateral neural foraminal narrowing. No neural compression. L4-L5: Loss of disc signal height. Mild, diffuse disc bulge. Mild bilateral facet hypertrophy. Mild ligamentum flavum hypertrophy. Moderate narrowing of the central canal. Moderate right and mild left neural foraminal narrowing. No neural compression. L5-S1: Loss of disc signal height. Mild, diffuse disc bulge. Mild right and [id number] left facet hypertrophy. Mild narrowing of the central canal. Moderate right and moderate to severe left subarticular neural foraminal narrowing with slight compression of the exiting left L5 nerve root. IMPRESSION: 1. Multilevel degenerative disc disease. 2. Multilevel facet arthropathy. 3. No severe central canal narrowing. 4. Moderate to severe left L5-S1 subarticular neural foraminal narrowing with slight compression of the exiting left L5 nerve root. Please correlate with clinical data. 5. Chronic T12 and L2 compression fractures. No acute compression fracture. Dictated by: Nida Coreas MD, PhD on 01/17/2022 at 20:18 Approved by: Nida Coreas MD, PhD on 01/17/2022 at 20:25
[2022-01-17] MEDS: HYDROMORPHONE 0.5 MG INJ (19:09)
[2022-01-17] MEDS: OXYCODONE IR 5 MG TABLET PO (21:01)
== END 2022-01-17 21:13 | disposition home or self-care (01) ==
PROVIDERS: Emergency Medicine; Emergency Provider Emergency Medicine
DX: M51.36 Other intervertebral disc degeneration, lumbar region (principal); M54.2 Cervicalgia; R10.9 Unspecified abdominal pain; R29.6 Repeated falls; K92.0 Hematemesis
CPT/HCPCS: 36415; 70450; 71260; 72125; 72148; 73130; 74177; 80053; 81003; 82550; 82553; 83690; 83735; 83880; 84484; 85025; 85610; 99284; 99285; J1170

== ENCOUNTER 2023-09-26 15:58 | Emergency (ER) | payer SELFPAY ==
[2023-09-26 16:19] VITALS: BP 132/61; PULSE 103; RESP 18; TEMP 36.7; O2SAT 97; BMI 26.2
--- NOTE | 2023-09-26 16:48 | DI.RAD.S_ITS ---
PROCEDURE: XR HAND LT MIN 3V INDICATIONS: left hand pain, hx neuropathy, falls a lot TECHNIQUE: 3 views of the hand(s) acquired. COMPARISON: [facility], CR, XR HAND LT MIN 3V, 01/17/2022, 13:49. FINDINGS: Bones: No acute fractures or dislocations. Carpal bones are normally aligned. No suspicious bony lesions. Remote 5th metacarpal fracture. Soft tissues: No suspicious soft tissue calcifications. IMPRESSION: No acute bony abnormality. Dictated by: Manolo Rodriguez M.D. on 09/26/2023 at 16:29 Approved by: Manolo Rodriguez M.D. on 09/26/2023 at 16:30
--- NOTE | 2023-09-26 16:48 | DI.RAD.S_ITS ---
PROCEDURE: XR SHOULDER LT MIN 2V INDICATIONS: left shoulder pain, falls a lot TECHNIQUE: 3 views of the shoulder were acquired. COMPARISON: None. FINDINGS: Bones: No fractures or dislocations. No suspicious bony lesions. Visualized ribs appear intact. Soft tissues: No suspicious soft tissue calcifications. IMPRESSION: No acute bony abnormality. Dictated by: Manolo Rodriguez M.D. on 09/26/2023 at 16:28 Approved by: Manolo Rodriguez M.D. on 09/26/2023 at 16:29
--- NOTE | 2023-09-26 17:47 | ED_ITS ---
HPI - Extremity Problem <Rosaura Salgado PA-C - Last Filed: 09/26/23 19:02> General Chief complaint: Extremity Problem,Nontraumatic Stated complaint: lt side sharp pain no feeling in hands Time Seen by Provider: 09/26/23 16:21 Source: patient Mode of arrival: Ambulatory History of Present Illness HPI Narrative: Patient is a 57-year-old male who presents with complaints of pain in his left upper extremity. The pain starts in his shoulder and radiates down to his fingers. It makes his fingers numb, tingly. Patient reports a history of peripheral neuropathy. In the past, he has taken gabapentin as well as Lyrica. He admits that he does not currently have any of these medications as he has not established primary care in many years. He currently lives in [facility] but is in [facility] to visit friends. It turns out his friends are not in town and so he does not have any were to stay. He does not take aspirin, Tylenol or ibuprofen due to stomach issues and kidney issues. He reports not having a diagnosis of diabetes but does take metformin. Patient has a history of recurrent falls but denies any recent fall or traumatic injury to his left shoulder or left arm. He reports a history of back pain and has been seen here at [facility] in the past for back pain. He denies any chest pain, chest pressure, shortness of breath, dyspnea on exertion, diaphoresis. He does endorse recent abdominal problems, endorsing diarrhea and unintentional weight loss. He does not currently have diarrhea today. States in the past he thinks he has had blood in his stool because of how it smells but this is not currently a problem. He has not had a colonoscopy in many years. He currently does not drink alcohol or take any drugs except marijuana. Related Data Allergies Allergy/AdvReac Type Severity Reaction Status Date / Time aspirin [ASPIRIN] Allergy Severe swelling Verified 09/26/23 16:26 bupropion [BUPROPION] Allergy Severe seizures Verified 09/26/23 16:26 haloperidol [From HALDOL] Allergy Severe bad Verified 09/26/23 16:26 reaction NSAIDS (Non-Steroidal Allergy Severe kidney Verified 09/26/23 16:26 Anti-Inflamma [NSAIDS (NON-STEROIDAL ANTI-INFLAMMA] Penicillins [PENICILLINS] Allergy Severe swelling Verified 09/26/23 16:26 acetaminophen [ACETAMINOPHEN] Allergy Mild stomach Verified 09/26/23 16:26 issues hydrocodone [From VICODIN] Allergy Mild sick Verified 09/26/23 16:26 ibuprofen [IBUPROFEN] Allergy Mild kidney Verified 09/26/23 16:26 tramadol [TRAMADOL] Allergy Mild itchy Verified 09/26/23 16:26 fentanyl Allergy Verified 09/26/23 16:26 Review of Systems <Rosaura Salgado PA-C - Last Filed: 09/26/23 19:02> Review of Systems ROS Unobtainable: All systems reviewed & are unremarkable except as noted in HPI and below Patient History <Rosaura Salgado PA-C - Last Filed: 09/26/23 19:02> Medical History Status post right shoulder hemiarthroplasty (01/31/16) Subluxation of right shoulder joint, sequela (01/31/16) Recurrent subluxation of right shoulder (01/31/16) Osteoarthritis of multiple joints (01/31/16) Encounter for medication management (01/31/16) History of psychological stress (01/31/16) History of alcohol abuse (01/31/16) Chronic pain syndrome (01/31/16) Bipolar disorder in partial remission (01/31/16) Social History lives independently: Yes Smoking Status: Former smoker Smoking Status: Former smoker alcohol intake frequency: a few times a month Substance Use Type: marijuana Exam <Rosaura Salgado PA-C - Last Filed: 09/26/23 19:02> Narrative Exam Narrative: GENERAL: 57 year old patient appears older than stated age. Well-developed patient, in no acute distress. Patient appears fatigued. NEURO: AOx3. HEAD: Atraumatic. Normocephalic. EYES: Pupils equal round and reactive. Extraocular motions intact. No scleral icterus. No injection or drainage. ENT: Nose without bleeding or purulent drainage. Airway patent. NECK: Trachea midline. Non tender CARDIOVASCULAR: Regular rate and rhythm without murmurs, gallops, or rubs. RESPIRATORY: Clear to auscultation. Breath sounds equal bilaterally. No wheezes, rales, or rhonchi. GASTROINTESTINAL: Abdomen soft, non-tender. EXTREMITIES: Weakness with exam of left upper extremity including radio station operator strength, abduction of the left upper extremity, shoulder shrug; when patient is speaking with me, he frequently gesticulating with the left upper extremity, moving it in abduction without apparent weakness. Capillary refill is 2 seconds, strong radial pulse left upper extremity. SKIN: No rash or erythema of visible areas Initial Vital Signs Initial Vital Signs: Vital Signs Temperature 98.1 F 09/26/23 16:19 Pulse Rate 103 H 09/26/23 16:19 Respiratory Rate 18 09/26/23 16:19 Blood Pressure 132/61 09/26/23 16:19 Pulse Oximetry 97 09/26/23 16:19 Oxygen Delivery Method Room Air 09/26/23 16:19 <Senait Das DO - Last Filed: 09/26/23 19:28> Initial Vital Signs Initial Vital Signs: Vital Signs Temperature 98.1 F 09/26/23 16:19 Pulse Rate 103 H 09/26/23 16:19 Respiratory Rate 18 09/26/23 16:19 Blood Pressure 132/61 09/26/23 16:19 Pulse Oximetry 97 09/26/23 16:19 Oxygen Delivery Method Room Air 09/26/23 16:19 Course <Rosaura Salgado PA-C - Last Filed: 09/26/23 19:02> Orders Ordered: ED Orders 09/26/23 16:48 XR hand LT min 3V Stat XR shoulder LT min 2V Stat Vital Signs Vital signs: Vital Signs - 8 hr 09/26/23 16:19 09/26/23 18:05 Temperature 98.1 F 98.4 F Pulse Rate 103 H 99 H Respiratory Rate 18 24 Blood Pressure 132/61 135/66 Pulse Oximetry 97 98 Oxygen Delivery Method Room Air Room Air <DO Noemi Barrow Last Filed: 09/26/23 19:28> Orders Ordered: ED Orders 09/26/23 16:48 XR hand LT min 3V Stat XR shoulder LT min 2V Stat Vital Signs Vital signs: Vital Signs - 8 hr 09/26/23 16:19 09/26/23 18:05 Temperature 98.1 F 98.4 F Pulse Rate 103 H 99 H Respiratory Rate 18 24 Blood Pressure 132/61 135/66 Pulse Oximetry 97 98 Oxygen Delivery Method Room Air Room Air MDM - Extremity (Nontraumatic) <Rosaura Salgado PA-C - Last Filed: 09/26/23 19:02> Lab Data Labs: Point of Care Testing Glucose POC 109 Imaging Data Extremity x-ray #1: Radiologist's Impression: PROCEDURE: XR HAND LT MIN 3V INDICATIONS: left hand pain, hx neuropathy, falls a lot TECHNIQUE: 3 views of the hand(s) acquired. COMPARISON: [facility], , XR HAND LT MIN 3V, 01/17/2022, 13:49. FINDINGS: Bones: No acute fractures or dislocations. Carpal bones are normally aligned. No suspicious bony lesions. Remote 5th metacarpal fracture. Soft tissues: No suspicious soft tissue calcifications. IMPRESSION: No acute bony abnormality. Dictated by: Manolo Rodriguez M.D. on 09/26/2023 at 16:29 Approved by: Manolo Rodriguez M.D. on 09/26/2023 at 16:30 Extremity x-ray #2: Radiologist's Impression: PROCEDURE: XR SHOULDER LT MIN 2V INDICATIONS: left shoulder pain, falls a lot TECHNIQUE: 3 views of the shoulder were acquired. COMPARISON: None. FINDINGS: Bones: No fractures or dislocations. No suspicious bony lesions. Visualized ribs appear intact. Soft tissues: No suspicious soft tissue calcifications. IMPRESSION: No acute bony abnormality. Dictated by: Manolo Rodriguez M.D. on 09/26/2023 at 16:28 Approved by: Manolo Rodriguez M.D. on 09/26/2023 at 16:29 [facility] Narrative Medical decision making narrative: Patient is symptoms today are consistent with peripheral neuropathy and chronic pain. I had a long and ricardo discussion with the patient regarding what he hopes to achieve with today's visit. He has no recent trauma, no infectious symptoms. He seems to have acute concerns regarding his chronic peripheral neuropathy and generalized chronic pain. He does not take Tylenol or ibuprofen due to declared sensitivities. He denies desiring benzodiazepines or opiate medications, stating that these are not good for him. I discussed the limitations of our evaluation here in the emergency room. Discussed potentially restarting gabapentin but he states his insurance will not cover it from a pharmacy in [place]. I encouraged the patient to establish care with a primary care physician in [place] where he lives to address his many chronic concerns. I have a very real concern about his unintentional weight loss and GI issues, he definitely needs a screening colonoscopy and further evaluation. While in the ER, I have offered evaluation with labs and x-ray. Patient states that he does not need labs drawn, he needs this fixed, gesticulating to his left upper extremity. I stated I do not have a quick fix for the source of symptoms he is reporting or way to test his nerves. I will obtain x-rays of his shoulder and his hand day to rule out fracture. These x-rays without clinically significant abnormality. I described these findings to the patient, again encouraged him to establish care with a PCP. In light of no further intervention being offered today, patient agrees to discharge. Patient's symptoms improved over duration of stay with above-stated therapies. Findings and discharge diagnosis discussed with patient/family followed by verbalization of understanding Return precautions discussed with patient/family whom verbalize understanding of diagnosis and plan <Senait Das, - Last Filed: 09/26/23 19:28> Lab Data Labs: Point of Care Testing Glucose POC 109 Discharge Plan Departure Patient Disposition: Home Clinical Impression: Peripheral neuropathy Qualifiers: Peripheral neuropathy type: polyneuropathy, unspecified Qualified Code(s): G62.9 - Polyneuropathy, unspecified Instructions: DI for Peripheral Neuropathy Activity Restrictions/Additional Instructions: *You have been diagnosed with peripheral neuropathy. There is no easy treatment for peripheral neuropathy. Medications like gabapentin or Lyrica can help. During our time together you told me that you have been on these medications in the past. I would strongly encourage you to reestablish care with a primary care provider in order to restart your treatment and complete any additional assessments. Given your multiple medication allergies including to Tylenol and ibuprofen, there are not many medications I can give you today for your left upper extremity pain. We did x-rays of your shoulder and your hand and there is no acute fracture or other injury. It does look like you have and old fracture of the 5th finger that is healed. I am concerned because you told me you have lost quite a bit of weight unintentionally over the past year and also maybe having blood in your stools intermittently. I would encourage you to talk to a primary care provider about a screening colonoscopy to make sure you do not have cancer. *What to do: *Please continue to take your regular medications as directed. [ ] New medication prescriptions sent to your pharmacy: [ ] [ ] New medication written as a paper prescription [x] No new medications given *Please follow up with your primary care provider in 2-3 days, call for an appointment. Let them know you were seen in the Emergency Department and that we ask that you be seen in follow up. We will electronically transmit a record of today's note if your PCP is in our system *If you do not have a primary care provider please contact the [facility] Resource line at [phone]. They will ask some questions about your medical history and help get you set up with a doctor in the community. *Return to Emergency Department if you should have any new, worsening or concerning symptoms, such as [fever greater than 101 F, shaking chills, worsening pain, persistent vomiting or other concerning symptoms]. Stand Alone Forms: Patient Portal/API ED Sign-out <Senait Das DO - Last Filed: 09/26/23 19:28> Cosign ED Attending Isabel Attestation: I was immediately available in the department for consultation.
[2023-09-26 18:05] VITALS: BP 135/66; PULSE 99; RESP 24; TEMP 36.9; O2SAT 98
== END 2023-09-26 18:10 | disposition home or self-care (01) ==
PROVIDERS: Emergency Provider Physician Assistant
DX: G62.9 Polyneuropathy, unspecified (principal)
CPT/HCPCS: 73030; 73130; 82962; 99282; 99283

== ENCOUNTER 2023-09-27 16:53 | Emergency (ER) | payer SELFPAY ==
[2023-09-27] VITALS (8 sets, daily range): BP systolic 124–142; BP diastolic 66–77; PULSE 92–110; RESP 18; TEMP 37.1; O2SAT 95–99; BMI 25.4
[2023-09-27] MEDS: ONDANSETRON 4 MG/2 ML INJ IV (17:22)
[2023-09-27] MEDS: SODIUM CHLORIDE 0.9% 1,000 ML 1000 ML IV (17:23)
[2023-09-27 17:26] LABS: Add Manual Diff / Slide Review NO; Basophils Absolute Auto 0 /uL (0-100); Basophils Percent Auto 0.4 % (0-2); Eosinophils Absolute Auto 300 /uL (0-450); Eosinophils Percent Auto 2.8 % (2-4); Hematocrit 42.9 % (41-53); Hemoglobin 14.2 g/dL (13.5-17.5); Lymphocytes Absolute Auto 1300 /uL (1100-4500); Lymphocytes Percent Auto 12.9 % (25-40); Mean Corpuscular Hemoglobin 28.3 PG (26-34); Mean Corpuscular Volume 85.8 fL (80-100); Monocytes Absolute Auto 900 /uL (0-900); Monocytes Percent Auto 8.3 % (3-14); Neutrophils Absolute Auto 7900 /uL (1500-7000); Neutrophils Percent Auto 75.6 % (50-75); Platelet Count 162 X10^3/uL (150-400); Red Cell Distribution Width 13.9 % (11.6-14.8); White Blood Cell Count 10.5 X10^3/uL (4.5-11.0)
[2023-09-27 17:29] LABS: Alanine Aminotransferase 50 IU/L (<50); Albumin 4.1 g/dL (3.5-5.0); Albumin Globulin Ratio 0.9 (1.0-2.8); Alkaline Phosphatase 113 U/L (38-126); Aspartate Aminotransferase 55 IU/L (17-59); Bilirubin Total 0.4 mg/dL (0.2-1.3); Blood Urea Nitrogen 9 mg/dL (9-20); Calcium 9.7 mg/dL (8.4-10.2); Carbon Dioxide 31 mmol/L (22-32); Chloride 103 mmol/L (98-107); Estimated Glomerular Filt Rate > 60 mL/min (>60); Globulin 4.5 g/dL (1.7-4.1); Glucose 93 mg/dL (70-100); HEMOLYSIS < 15 (0-50); Lipase 353 U/L (23-300); Potassium 3.7 mmol/L (3.4-5.1); Sodium 140 mmol/L (137-145); Total Protein 8.6 g/dL (6.3-8.2)
--- NOTE | 2023-09-27 18:06 | ED_ITS ---
HPI - Abdominal Pain General Chief Complaint: Abdominal Pain Stated Complaint: Abd pain Time Seen by Provider: 09/27/23 17:17 Source: patient Mode of arrival: Ambulatory History of Present Illness HPI narrative: Patient is a 57-year-old male history of peripheral neuropathy diabetes alcoholism but sober for a number of years presenting today with abdominal pain. He reports that [place] currently does not have a place to stay, and started having diarrhea. He was actually seen evaluated here yesterday for some peripheral neuropathy. He has had some nausea intermittent vomiting. He has been able to keep some Powerade stuff down. He said he is anaphylactic to NSAIDs and can not have Tylenol due to his liver function. He denies fever chills or chest pain Related Data Previous Rx's Medication Instructions Recorded ciprofloxacin HCl 500 mg tablet 500 mg PO BID #14 tabs 09/27/23 (Cipro) metronidazole 500 mg tablet 500 mg PO Q8H 7 days #21 tabs 09/27/23 Allergies Allergy/AdvReac Type Severity Reaction Status Date / Time aspirin [ASPIRIN] Allergy Severe swelling Verified 09/27/23 16:57 bupropion [BUPROPION] Allergy Severe seizures Verified 09/27/23 16:57 haloperidol [From HALDOL] Allergy Severe bad Verified 09/27/23 16:57 reaction NSAIDS (Non-Steroidal Allergy Severe kidney Verified 09/27/23 16:57 Anti-Inflamma [NSAIDS (NON-STEROIDAL ANTI-INFLAMMA] Penicillins [PENICILLINS] Allergy Severe swelling Verified 09/27/23 16:57 acetaminophen [ACETAMINOPHEN] Allergy Mild stomach Verified 09/27/23 16:57 issues hydrocodone [From VICODIN] Allergy Mild sick Verified 09/27/23 16:57 ibuprofen [IBUPROFEN] Allergy Mild kidney Verified 09/27/23 16:57 tramadol [TRAMADOL] Allergy Mild itchy Verified 09/27/23 16:57 fentanyl Allergy Verified 09/27/23 16:57 Patient History Medical History Status post right shoulder hemiarthroplasty (01/31/16) Subluxation of right shoulder joint, sequela (01/31/16) Recurrent subluxation of right shoulder (01/31/16) Osteoarthritis of multiple joints (01/31/16) Encounter for medication management (01/31/16) History of psychological stress (01/31/16) History of alcohol abuse (01/31/16) Chronic pain syndrome (01/31/16) Bipolar disorder in partial remission (01/31/16) Social History lives independently: Yes Smoking Status: Former smoker Smoking Status: Former smoker alcohol intake frequency: a few times a month Substance Use Type: marijuana Exam Initial Vital Signs Initial Vital Signs: Vital Signs Temperature 98.8 F 09/27/23 16:57 Pulse Rate 110 H 09/27/23 16:57 Respiratory Rate 18 09/27/23 16:57 Blood Pressure 134/74 09/27/23 16:57 Pulse Oximetry 98 09/27/23 16:57 Oxygen Delivery Method Room Air 09/27/23 16:57 GENERAL: Alert 57-year-old male and in no acute distress. HEENT: Head atraumatic,EOMI, pupils reactive, face symmetric, moist mucous membranes CARDIOVASCULAR: Regular rate and rhythm without murmurs, rubs or gallops. RESPIRATORY: Breath sounds equal bilaterally, no wheezes rales or rhonchi. ABDOMEN: Soft, mild epigastric pain some left upper quadrant pain negative [place] sign no splenomegaly or hepatomegaly EXTREMITIES: Normal range of motion, no clubbing or edema. Neurovascularly intact NEUROLOGICAL: Alert and oriented x4.Normal gait and speech. SKIN: Warm, dry, no laceration, no petechiae, no rashes or lesions. Course Orders Ordered: ED Orders 09/27/23 16:55 Complete Blood Count AUTO DIFF Stat Comprehensive Metabolic Panel Stat Lipase Stat 09/27/23 18:19 CT abdomen pelvis w con Stat Discontinued Medications Ciprofloxacin (Ciprofloxacin 250 Mg Tablet) 500 mg PO NOW ONE Stop: 09/27/23 19:10 Last Admin: 09/27/23 19:17 Dose: 500 mg Documented By: CHELITA Sodium Chloride (Normal Saline 0.9%) 1,000 mls @ 1,000 mls/hr IV BOLUS ONE Stop: 09/27/23 18:16 Last Infusion: 09/27/23 19:08 Dose: Infused Documented By: Admin: 09/27/23 17:23 Dose: 1,000 mls/hr Documented By: CHELITA Metronidazole (Metronidazole 500 Mg Tablet) 500 mg PO NOW ONE Stop: 09/27/23 19:10 Last Admin: 09/27/23 19:16 Dose: 500 mg Documented By: CHELITA Morphine Sulfate (Morphine 2 Mg/Ml Inj) 2 mg IV NOW ONE Stop: 09/27/23 19:24 Last Admin: 09/27/23 19:30 Dose: 2 mg Documented By: CHELITA Ondansetron HCl (Ondansetron 4 Mg/2 Ml Inj) 4 mg IV NOW ONE Stop: 09/27/23 17:19 Last Admin: 09/27/23 17:22 Dose: 4 mg Documented By: CHELITA Vital Signs Vital signs: Vital Signs - 8 hr 09/27/23 16:57 09/27/23 17:12 09/27/23 17:12 Temperature 98.8 F Pulse Rate 110 H 107 H Respiratory Rate 18 Blood Pressure 134/74 141/77 H Pulse Oximetry 98 99 Oxygen Delivery Method Room Air 09/27/23 17:30 09/27/23 17:30 09/27/23 18:00 Temperature Pulse Rate 92 H Respiratory Rate Blood Pressure 132/69 142/67 H Pulse Oximetry 99 Oxygen Delivery Method 09/27/23 18:00 09/27/23 18:37 09/27/23 19:00 Temperature Pulse Rate 95 H 93 H 97 H Respiratory Rate Blood Pressure Pulse Oximetry 99 99 97 Oxygen Delivery Method 09/27/23 19:18 09/27/23 19:19 Temperature Pulse Rate 104 H Respiratory Rate Blood Pressure 124/66 Pulse Oximetry 95 Oxygen Delivery Method MDM - Abdominal Pain Lab Data 09/27/23 16:55 09/27/23 16:55 Labs: Lab Results 09/27/23 Range/Units 16:55 WBC 10.5 (4.5-11.0) X10^3/uL RBC 5.00 (4.5-5.9) X10^6/uL Hgb 14.2 (13.5-17.5) g/dL Hct 42.9 (41-53) % MCV 85.8 (80-100) fL MCH 28.3 (26-34) PG MCHC 33.0 (30-36) % RDW 13.9 (11.6-14.8) % Plt Count 162 (150-400) X10^3/uL Neut % (Auto) 75.6 H (50-75) % Lymph % (Auto) 12.9 L (25-40) % [place] % (Auto) 8.3 (3-14) % Eos % (Auto) 2.8 (2-4) % Baso % (Auto) 0.4 (0-2) % Neut # (Auto) 7900 H (9469-9423) /uL Lymph # (Auto) 1300 (0473-0294) /uL [place] # (Auto) 900 (0-900) /uL Eos # (Auto) 300 (0-450) /uL Baso # (Auto) 0 (0-100) /uL Sodium 140 (137-145) mmol/L Potassium 3.7 (3.4-5.1) mmol/L Chloride 103 (98-107) mmol/L Carbon Dioxide 31 (22-32) mmol/L BUN 9 (9-20) mg/dL Creatinine 0.60 L (0.66-1.25) mg/dL Estimated GFR > 60 (>60) mL/min BUN/Creatinine Ratio 15.0 (6-22) Glucose 93 (70-100) mg/dL Calcium 9.7 (8.4-10.2) mg/dL Total Bilirubin 0.4 (0.2-1.3) mg/dL AST 55 (17-59) IU/L ALT 50 H (<50) IU/L Alkaline Phosphatase 113 (38-126) U/L Total Protein 8.6 H (6.3-8.2) g/dL Albumin 4.1 (3.5-5.0) g/dL Globulin 4.5 H (1.7-4.1) g/dL Albumin/Globulin Ratio 0.9 L (1.0-2.8) Lipase 353 H (23-300) U/L Imaging Data CT scan - abdomen/pelvis: Radiologist's Impression: PROCEDURE: CT ABDOMEN PELVIS W CON INDICATIONS: epigastric pain TECHNIQUE: After the administration of intravenous contrast, axial sections acquired from the lung bases to the pubic symphysis. Coronal and sagittal reformats were performed. For radiation dose reduction, the following was used: automated exposure control, adjustment of mA and/or kV according to patient size. COMPARISON: None. FINDINGS: Image quality: Diagnostic. Lower Chest: Marked coronary calcifications for age. Small hiatal hernia. ABDOMEN: Liver: Macro lobulated liver contour with a recannulized umbilical vein. Patent portal vein. Gallbladder: Contracted. Biliary ducts: No biliary dilation. Pancreas: No ductal dilation. Spleen: Size is within normal limits. Adrenal Glands: No adrenal nodules. Kidneys and Ureters: No hydronephrosis. No solid mass. No complex renal cystic lesion which requires follow up. Punctate right-sided nephrolithiasis. Stomach and Bowel: Sigmoid colonic wall thickening. Peritoneum: No abnormal intraperitoneal fluid. No free air. Ventral Wall: No hernia. Abdominal Nodes: No retroperitoneal or mesenteric adenopathy by size criteria. Vessels: Aorta and inferior vena cava are normal in size. PELVIS: Pelvic Organs: Unremarkable. Bladder: Unremarkable. Pelvic Nodes: No enlarged lymph nodes. Miscellaneous: No inguinal hernias are seen. Bones: No aggressive osseous abnormality. Stable compression deformities of the T12 and L2 vertebral body. IMPRESSION: Colitis of the sigmoid colon. Cirrhosis. Dictated by: Haseeb Pike M.D. on 09/27/2023 at 18:53 MDM Narrative Medical decision making narrative: Patient 57-year-old homeless male presenting today with diarrhea your abdominal pain. He has had some nausea but no vomiting here. He is mildly tachycardic but not hypotensive. He is mildly tender in left upper quadrant and epigastric region. Blood work has been reviewed: No leukocytosis or anemia, no significant electrolyte abnormality DEANDRE, AST is 55 ALT 50 bilirubin 0.4, lipase 353 CT does show colitis Patient has colitis likely causing his diarrhea and pain. He does not have any leukocytosis or fever. However will put him on some antibiotics due to homelessness and high-risk. No need for admission. He was offered Tylenol and Toradol for pain however with allergy to ibuprofen Toradol not indicated and he did not want Tylenol. Pain does not seem to be out of proportion no concern for mesenteric ischemia. Discharge Plan Departure Patient Disposition: Home Clinical Impression: Colitis Instructions: DI for Colitis Activity Restrictions/Additional Instructions: *You have been diagnosed with colitis *What to do: At time of infection and urine testing easily treated with antibiotics. Be sure to stay hydrated as best you can some Powerade *Continue to take medications as directed Cipro 500 mg twice a day for 7 days Flagyl 500 mg 3 times a day for 7 days *Follow up with your primary care provider in 2-3 days or call [phone] *Return to ER if you should have dizziness lightheadedness increasing pain or any new, worsening or concerning symptoms Prescriptions: New metronidazole 500 mg tablet 500 mg PO Q8H 7 Days Qty: 21 0RF ciprofloxacin HCl [Cipro] 500 mg tablet 500 mg PO BID Qty: 14 0RF Stand Alone Forms: Patient Portal/API
--- NOTE | 2023-09-27 18:19 | DI.CT.S_ITS ---
PROCEDURE: CT ABDOMEN PELVIS W CON INDICATIONS: epigastric pain TECHNIQUE: After the administration of intravenous contrast, axial sections acquired from the lung bases to the pubic symphysis. Coronal and sagittal reformats were performed. For radiation dose reduction, the following was used: automated exposure control, adjustment of mA and/or kV according to patient size. COMPARISON: None. FINDINGS: Image quality: Diagnostic. Lower Chest: Marked coronary calcifications for age. Small hiatal hernia. ABDOMEN: Liver: Macro lobulated liver contour with a recannulized umbilical vein. Patent portal vein. Gallbladder: Contracted. Biliary ducts: No biliary dilation. Pancreas: No ductal dilation. Spleen: Size is within normal limits. Adrenal Glands: No adrenal nodules. Kidneys and Ureters: No hydronephrosis. No solid mass. No complex renal cystic lesion which requires follow up. Punctate right-sided nephrolithiasis. Stomach and Bowel: Sigmoid colonic wall thickening. Peritoneum: No abnormal intraperitoneal fluid. No free air. Ventral Wall: No hernia. Abdominal Nodes: No retroperitoneal or mesenteric adenopathy by size criteria. Vessels: Aorta and inferior vena cava are normal in size. PELVIS: Pelvic Organs: Unremarkable. Bladder: Unremarkable. Pelvic Nodes: No enlarged lymph nodes. Miscellaneous: No inguinal hernias are seen. Bones: No aggressive osseous abnormality. Stable compression deformities of the T12 and L2 vertebral body. IMPRESSION: Colitis of the sigmoid colon. Cirrhosis. Dictated by: Haseeb Pike M.D. on 09/27/2023 at 18:53 Approved by: Haseeb Pike M.D. on 09/27/2023 at 18:56
[2023-09-27] MEDS: metroNIDAZOLE 500 MG TABLET PO (19:16)
[2023-09-27] MEDS: CIPROFLOXACIN 250 MG TABLET 500 MG PO (19:17)
[2023-09-27] MEDS: MORPHINE 2 MG/ML INJ IV (19:30)
--- NOTE | 2023-09-28 15:02 | CM.SWNOTE ---
ED TIME ANALYSIS CLERK follow up note TIME ANALYSIS CLERK receives consult from fire extinguisher charger due to patient's recent presentations to the ED and patient seeking alf and transport to [place]. Patient reports he has contacted [facility], [facility] and other shelters and has not had luck with any alf for this evening. Patient is currently waiting in [facility], TIME ANALYSIS CLERK enters [facility] to speak with patient. TIME ANALYSIS CLERK provides patient with list of resources and [facility] day bus passes. Patient is provided information about [facility], [facility]. TIME ANALYSIS CLERK consults with cecilio, Cecilio Fajardo meets with patient and discusses options available. Scotty states he may be able to identify a voucher through his anglican. TIME ANALYSIS CLERK returns to [facility] and patient is no longer there, TIME ANALYSIS CLERK to f/u with Scotty Hernandes regarding patient. Constance Bey, HAND FINISHER
== END 2023-09-27 20:00 | disposition home or self-care (01) ==
PROVIDERS: Emergency Medicine; Emergency Provider Emergency Medicine
DX: K52.9 Noninfective gastroenteritis and colitis, unspecified (principal); R10.13 Epigastric pain; R11.2 Nausea with vomiting, unspecified
CPT/HCPCS: 36415; 74177; 80053; 83690; 85025; 96361; 96374; 96375; 99284; J2270; J2405; Q9967